=== PATIENT | male | born 1980 | race Caucasian/White ===

== ENCOUNTER → 2024-01-26 06:30 | Day surgery (SDC) | payer OTHER, SELFPAY | LOC: GI 06:30 | PROVIDERS: ATTENDING PHYSICIAN Internal Medicine Gastroenterology | DX: K21.9 Gastro-esophageal reflux disease without esophagitis (principal); Z53.8 Procedure and treatment not carried out for other reasons | CPT/HCPCS: 43235; G0378 ==

== ENCOUNTER 2024-12-04 08:25 | Emergency (ER) | payer OTHER, SELFPAY ==
[2024-12-04] VITALS (8 sets, daily range): BP systolic 125–169; BP diastolic 75–108; BMI 35.8
--- NOTE | 2024-12-04 09:18 | ED.GENMED ---
History of Present Illness
General
Chief Complaint: Chest Pain
Source: patient
Exam Limitations: none
Time Seen by Provider: 12/04/24 08:49
Nursing documentation reviewed up to this point in time: agreed with
History of Present Illness
History of Present Illness:
44 y/o M with h/o IVDA (last used 2 mo ago, last used snorting fentanyl 3 weeks ago, on methadone)
here with L chest pain
started suddenly yesterday around noon
he said he stayed at work for a few hours
he came home and said the pain was severe, radiating to L [place] with nausea, diaphoresis
he stayed at home and tried not to take deep breaths or move and ultimately it did improve significantly around midnight
he was able to sleep
when he woke up he had some mild sorenes 02/20
went to his methadone clinic and told them about the pain; they did an EKG which was different (new t wave inv in v1, v2) and he was hypertnesive so they sent him in
pt has not had vomiting, diarrhea, fever, chills, cough,, syncope
Past History
Past History
ED Past Medical History: None
ED Past Surgical History: None
Social History
Tobacco: Smoker
Alcohol: None
Drug: IVDA
Personal: Single
Employment: Employed
Phy Exam
Physical Exam
Physical Exam:
GENERAL: Alert , in no apparent distress, very pleasant
EYE: pupils equal and reactive
NECK: Supple
ENT: o/p clr, mmm.
CARDIAC: Mildly tachycardic regular rate and rhythm .
LUNGS: Clear breath sounds bilaterally, no acute respiratory distress, no wheezes/rales/rhonchi
ABDOMEN: Soft, specifically no left upper quadrant abdominal tenderness without focal tenderness, no r/g, no cvat, normal bowel sounds
NEUROLOGICAL: Alert and oriented, no focal neuro deficits
SKIN: Warm and dry, skin intact.
MUSCULOSKELETAL: No edema, well perfused. neg trisha's sign
PSYCH: Normal and appropriate interaction.
Scores
Heart Score for Chest Pain Patients
STEMI patient?: No
History: Moderately Suspicious
ECG: Nonspecific Repolarization
Age: </= 45 years
Risk Factors: No Risk Factors
Troponin: </= Normal Limit
Heart Score for Chest Pain Patients: 2
Heart Score Risk: 2.5% MACE over next 6 weeks
Course
Orders/Labs/Results
Orders:
Orders
12/04/24 08:26
ECG [Electrocardiogram (*1)] Urgent
Reason for Study: Chest Pain
EKG- Treatment ONCE
12/04/24 09:03
Aspirin Chewable [Low Strength Aspirin] 81 mg PO NOW STA
12/04/24 09:04
CT Chest PE Study Urgent
Comment:
Reason For Exam: pleuritic L chest pain, tachy, ekg shy nges
12/04/24 09:14
Complete Blood Count/With Diff Urgent
Comprehensive Metabolic Panel Urgent
Lipase Urgent
PTT Urgent
Prothrombin Time Urgent
Troponin I Urgent
12/04/24 10:42
Lactated Ringers [Lr] 1,000 ml IV BOLUS
US Abdomen Complete/Upper Urgent
Comment:
Reason For Exam: severe L pain, elev lipase; eval gallstones
Abnormal Lab Results
12/04/24
09:14
MCHC 32.4 L g/dL
(33.0-37.0)
Monocytes % 12.1 H %
(1.7-9.3)
Carbon Dioxide 31 H mmol/L
(22-30)
Lipase 628 H U/L
(23-300)
12/04/24 09:14
12/04/24 09:14
Vital Signs
Initial and Last Documented VS:
Initial Vital Signs
Temp Pulse Resp BP Pulse Ox
36.9 C 97 20 155/108 96
12/04/24 08:31 12/04/24 08:31 12/04/24 08:31 12/04/24 08:31 12/04/24 08:31
Last Documented Vital Signs
Temp Pulse Resp BP Pulse Ox
36.9 C 74 20 126/92 93
12/04/24 08:31 12/04/24 14:15 12/04/24 08:31 12/04/24 14:00 12/04/24 14:22
MDM/Problems Addressed
Differential Diagnosis Includes:
acs, PE, dissection, pancreatitis, pleurisy
MDM/Problems Addressed:
44 y/o M h/o IVDA no use 2 mo, on methadone
sudden severe L chest pain last night lasting several hours, couldn't breathe well, nauseated; it ultimately got better at midnight and then he slept, woke up and had more pain this am but minimal
was hypertensive at methadone clinic today and sent in for w/u
intiially hypertensive here which resolved
ekg sinus tach, some changes from old but not ischemci
tachy 100s, with new st changes v1, v2; concern for PE
cbc, cmp, trop normal
CT PE shows no PE
mild bibasilar atelectasis and minor opacity in LLL; with small L pleural effusion and possibly mild subcarinal mediastinal AGUSTO
after CT: his lipase resulted and was 698; then concerned about gallstnoe pancreatitis since pain was so severe last night
so i US his abdomen which doesn't show any evidence of CBD dilation and what was visualized (both on ct of chest and abd US) of his pancreas looked normla though it was limited
i did offer him obs overnight for IVF, clears and reassess whether he needs CT of a/p. but he would prefer to go home
clears for 24 hours
needs outpatient f/u
i reached out to dr. monahan his PCP who will follow up with lipase recheck
covering with ABX for pleurisy related to pleural effusino/possible early pna
*Critical Care Note
Total Time (30-74mins, 75-104mins- exclusive of procedures): Not Applicable
ED Attending Note
-
Portions of this chart may have been created with voice recognition software.� Occasional wrong word or��sound alike� substitutions may have occurred due to the inherent limitations of voice recognition software.
Discharge Plan
Departure
Patient Disposition: Home (Routine Discharge)
Date of Disposition: 12/04/24
Time of Disposition: 15:14
Patient with high blood pressure during this ER visit?: No
Condition: Fair
Covid-19: Not Applicable
Discharge Problem:
Elevated lipase, Pleural effusion
Instructions: Pleural effusion - Discharge instructions, Pancreatitis - Discharge instructions, Pleurisy
Prescriptions:
New
amoxicillin-pot clavulanate 875-125 mg tablet
1 tab PO BID Qty: 14 0RF
No Action
amoxicillin-pot clavulanate 1 TABLET tablet
1 tab PO Q12 Qty: 20 0RF
cephalexin 500 mg capsule
500 mg PO QID Qty: 40 0RF
Referrals:
Byron Monahan MD [Family Provider] - Follow up in 5-7 days
Activity Restrictions/Additional Instructions:
We are not entirely sure what is causing your symptoms. It could be from a couple of things. Your lipase enzyme was slightly elevated. Try clear liquids to rest your pancreas. It could be slightly inflamed which is called pancreatitis. Do this
for 24 to 48 hours and advance as tolerated. If you get a lot of pain in your abdomen or start vomiting you need to come back in. This lipase needs to be rechecked next week. I already reached out to Dr. Monahan who is aware of all of this. Please
call for an appointment. Your pain could have also been from fluid in your lungs. You have a slight opacity there which could be a pneumonia. I am going to treat you with antibiotics.
Watch your symptoms very closely. Return for any shortness of breath, fever, vomiting, worsening pain etc.
Interventions
Interventions:
*Risk Screen - Suicide Last Done: 12/04/24 15:26
*General Assessment Last Done: 12/04/24 08:51
*Neglect/Abuse Screening Last Done: 12/04/24 15:26
ED- Fall Risk Assessment Last Done: 12/04/24 15:26
*ED COVID-19 Vaccine History Last Done: 12/04/24 08:51
*Nursing Disposition Last Done: 12/04/24 15:26
ED- Cardiac Assessment Last Done: 12/04/24 08:51
Discharge Date and Time
Discharge Date/Time: 12/04/24 15:26
Print Language: WELSH
[2024-12-04 09:24] LABS: % Basophils 0.6 % (0-2); % Eosinophils 1.1 % (0-6); % Immature Granulocytes 0.4 % (0-0.5); % Lymphocytes 25.8 % (20.5-51.1); % Monocytes 12.1 % (1.7-9.3); Absolute Eosinophils 0.1 10^3/uL (0-0.7); Absolute Lymphocytes 1.4 10^3/uL (1.2-3.4); Absolute Monocytes 0.6 10^3/uL (0.1-0.6); Absolute Neutrophils 3.2 10^3/uL (1.4-6.5); Hematocrit 44.2 % (39.0-52.0); Hemoglobin 14.3 g/dL (13.0-18.0); Mean Corp Hgb Conc. 32.4 g/dL (33.0-37.0); Mean Corpuscular Hgb 27.3 pg (27.0-31.0); Mean Corpuscular Volume 84.5 fL (80.0-94.0); Mean Platelet Volume 10.2 fL (7.4-10.4); Nucleated Red Blood Cells % 0 % (-); Platelet Count 183 10^3/uL (130-400); Red Blood Cell Count 5.23 10^6/uL (4.70-6.10); Red Cell Dist. Width 14.4 % (11.5-14.5); White Blood Cell Count 5.3 10^3/uL (4.8-10.8)
[2024-12-04 09:33] LABS: APTT 28.3 Sec (23.4-35.0); PT 12.7 Sec (11.4-14.6)
[2024-12-04 09:35] LABS: ALT (SGPT) 26 U/L (0-50); AST (SGOT) 35 U/L (17-59); Albumin 4.4 g/dl (3.5-5.0); Alkaline Phosphatase 59 U/L (38-126); Blood Urea Nitrogen 15 mg/dl (9-20); Calcium 9.3 mg/dl (8.4-10.2); Carbon Dioxide 31 mmol/L (22-30); Chloride 101 mmol/L (98-107); Estimated Creatinine Clearance > 125 ml/min; Glucose 99 mg/dl (70-99); Potassium 4.4 mmol/L (3.5-5.1); Sodium 139 mmol/L (135-145); Total Bilirubin 0.6 mg/dl (0.2-1.3); Total Protein 7.6 g/dl (6.3-8.2); eGFR > 60.00
[2024-12-04 09:47] LABS: Troponin I < 0.012 ng/ml
[2024-12-04] MEDS: LOW STRENGTH ASPIRIN 81 MG PO (09:57)
[2024-12-04 10:28] LABS: Lipase 628 U/L (23-300)
[2024-12-04] MEDS: LR 1000 IV (10:51)
== END 2024-12-04 15:26 | disposition home or self-care (01) ==
LOC: EMR 08:25
PROVIDERS: Physician Assistant; EMERGENCY PHYSICIAN Emergency Medicine; FAMILY PHYSICIAN Family Medicine
DX: J90 Pleural effusion, not elsewhere classified (principal); R74.8 Abnormal levels of other serum enzymes; R07.89 Other chest pain; F17.200 Nicotine dependence, unspecified, uncomplicated
CPT/HCPCS: 99284; 96360; 71275; 76700; 80053; 83690; 84484; 85025; 85610; 85730; 93005; Q9967

== ENCOUNTER 2025-06-23 07:06 | Emergency (ER) | payer SELFPAY ==
[2025-06-23 07:08] VITALS: BP 145/88
--- NOTE | 2025-06-23 08:17 | ED.GENMED ---
History of Present Illness
General
Chief Complaint: Skin Surface Trauma
Source: patient
Time Seen by Provider: 06/23/25 07:54
History of Present Illness
History of Present Illness:
45-year-old male presenting to the ER for evaluation after sustaining laceration of his right hand while at work earlier this morning. Patient is right-hand dominant and tetanus vaccine is up-to-date. No other injuries were sustained.
Past History
Past History
ED Past Medical History: Asthma
ED Past Surgical History: Tonsilectomy
Social History
Tobacco: Smoker
Alcohol: None
Drug: Former user and IVDA
Personal: Single
Living: with family
Employment: Employed
Review of Systems
Review of Systems
All Other Systems: ROS reviewed and negative except as documented in HPI and ROS
Phy Exam
Physical Exam
Physical Exam:
AAO times three, in nad
Extrem: hand/wrist/fingers held in normal resting position. 1-1/2 cm right hand laceration over the palmar surface second metacarpal at the level of the MCP, superficial, no active bleeding
Flexor Tendons-Full active/passive ROM, nl flexion of all superficialis/profundus tendons against resistance
Extensor Tendons-Full active/passive ROM, and nl extension of all fingers against resistance
No FB seen on exam (s/p anesthesia)
Normal light tough/sharp/two point discrimination in all fingers
Pt denies sensation/concern for fracture, foreign body, excessive debris, numbness/tingling of fingers, weakness of fingers, of difficulty in moving any joint.
Scores
Heart Failure Risk
Heart Failure Risk Score: Not Applicable
Heart Score for Chest Pain Patients
STEMI patient?: Not applicable
Withdrawal Assessment of Alcohol
Withdrawal Assessment Completed?: Not applicable
Course
Vital Signs
Initial and Last Documented VS:
Initial Vital Signs
Temp Pulse Resp BP Pulse Ox
98.7 F 104 18 145/88 95
06/23/25 07:08 06/23/25 07:08 06/23/25 07:08 06/23/25 07:08 06/23/25 07:08
Last Documented Vital Signs
Temp Pulse Resp BP Pulse Ox
98.7 F 104 18 145/88 95
06/23/25 07:08 06/23/25 07:08 06/23/25 07:08 06/23/25 07:08 06/23/25 08:18
Procedures
Laceration Closure
Right Hand:
Status of Wound: clean
Size of Wound in cm: 1.5
Description of Wound Edges: sharp
Preparation: cleaned with saline
Anesthesia: 1% Lidocaine
Revision/Debridement: routine- no revision
Type of Closure: single layer closure
Skin Closure Material: 5-0 nylon
Number of sutures: 8
MDM/Problems Addressed
Differential Diagnosis Includes:
Simple laceration
No findings on exam to suggest nerve or tendon laceration
No findings to suggest fracture
MDM/Problems Addressed:
45-year-old male presenting to the ER for evaluation of right hand laceration. Laceration repaired as above without any difficulty. NSAIDs/Tylenol as needed for pain. Discussed wound care with patient. Return precautions to the ER discussed.
Suture removal in 10 to 12 days.
*Pulse Oximetry
SaO2: 95
Oxygen Mode of Delivery: Room air
Patient hypoxic: no
*Critical Care Note
Total Time (30-74mins, 75-104mins- exclusive of procedures): Not Applicable
ED Attending Note
-
Portions of this chart may have been created with voice recognition software.� Occasional wrong word or��sound alike� substitutions may have occurred due to the inherent limitations of voice recognition software.
Discharge Plan
Departure
Patient Disposition: Home (Routine Discharge)
Date of Disposition: 06/23/25
Time of Disposition: 08:17
Patient with high blood pressure during this ER visit?: Yes
Discharge Problem:
Laceration of hand, right
Instructions: Laceration Repair With Stitches (DC)
Prescriptions:
No Action
amoxicillin-pot clavulanate 1 TABLET tablet
1 tab PO Q12 Qty: 20 0RF
cephalexin 500 mg capsule
500 mg PO QID Qty: 40 0RF
amoxicillin-pot clavulanate 875-125 mg tablet
1 tab PO BID Qty: 14 0RF
Stand Alone Forms: Return to Work
Interventions
Interventions:
*Risk Screen - Suicide Last Done: 06/23/25 07:08
*General Assessment Last Done: 06/23/25 07:08
*Neglect/Abuse Screening Last Done: 06/23/25 07:08
*ED- Fall Risk Assessment Last Done: 06/23/25 08:43
*ED COVID-19 Vaccine History Last Done: 06/23/25 08:43
*Nursing Disposition Last Done: 06/23/25 08:43
ED-Skin Assessment Last Done: 06/23/25 08:43
Discharge Date and Time
Discharge Date/Time: 06/23/25 08:44
Print Language: FINNISH
== END 2025-06-23 08:44 | disposition home or self-care (01) ==
LOC: EMR 07:06
PROVIDERS: EMERGENCY PHYSICIAN Student in an Organized Health Care Education/Training Program; FAMILY PHYSICIAN Family Medicine
DX: S61.411A Laceration without foreign body of right hand, initial encounter (principal); W45.8XXA Other foreign body or object entering through skin, initial encounter; Y99.0 Civilian activity done for income or pay; J45.909 Unspecified asthma, uncomplicated; F17.200 Nicotine dependence, unspecified, uncomplicated
CPT/HCPCS: 12001; 99282